=== PATIENT | female | born 1990 | race Caucasian/White ===

== ENCOUNTER 2021-02-16 19:39 | Inpatient (IN) | payer BC ==
[~2021-02-16] VITALS: Ht 157.5 cm; Wt 61.2 kg
[2021-02-16] MEDS ORDERED: ONDANSETRON 4 MG/2 ML VIAL IV ONE (20:00)
[2021-02-16] MEDS ORDERED: HYDROMORPHONE 1 MG/1 ML DISP.SYRIN IV ONE ×3 (20:00→22:30)
[2021-02-16] MEDS ORDERED: PIPERACILLIN SODIUM/TAZOBACTAM 3.375 G in IV DEXTROSE 5% 50 ML IV ONE (20:00)
[2021-02-16] MEDS ORDERED: IV NORMAL SALINE 1000 ML BAG IV ONE (20:00)
[2021-02-16 20:17] LABS: *BILIRUBIN,URIN NEGATIVE (NEGATIVE); *BLOOD, URINE NEGATIVE (NEGATIVE); *CLARITY,URINE CLEAR (CLEAR); *COLOR,URINE YELLOW (YELLOW); *KETONES,URINE NEGATIVE (NEGATIVE); *UROBILINOGEN,URINE 0.2 E.U./dl (NORMAL); LEUKOCYTE ESTERASE ,URINE NEGATIVE (NEGATIVE); NITRITE, URINE NEGATIVE (NEGATIVE); PH,URINE 5.5 (5.0-8.0); UGLUCOSE NEGATIVE (NEGATIVE)
[2021-02-16 20:18] LABS: *URINE HCG, QUAL NEGATIVE (NEGATIVE)
[2021-02-16 20:19] LABS: BASOPHILS # (AUTO) 0.1 K/uL (0.0-8.0); BASOPHILS % (AUTO) 0.6 % (0.0-2.0); EOSINOPHILS # (AUTO) 0.2 K/uL (0.0-0.7); EOSINOPHILS % (AUTO) 1.4 % (0.0-7.0); HEMATOCRIT 40.9 % (31.2-41.9); HEMOGLOBIN 13.9 g/dL (10.9-14.3); LYMPHOCYTES # (AUTO) 2.6 K/uL (20.0-40.0); LYMPHOCYTES % (AUTO) 21.5 % (20.5-51.5); MEAN CORPUSCULAR HEMOGLOBIN 31.2 uug (24.7-32.8); MEAN CORPUSCULAR HGB CONC 34 g/dL (32.3-35.6); MEAN CORPUSCULAR VOLUME 91.7 fL (75.5-95.3); MONOCYTES # (AUTO) 0.7 K/uL (2.0-10.0); MONOCYTES % (AUTO) 6.1 % (0.0-11.0); NEUTROPHILS # (AUTO) 8.6 K/uL (1.8-8.9); NEUTROPHILS % (AUTO) 70.4 % (38.5-71.5); PLATELET COUNT (AUTO) 272 K/uL (179-408); RED BLOOD CELL COUNT(AUTO) 4.46 MIL/uL (3.63-4.92); WHITE BLOOD COUNT (AUTO) 12.3 K/uL (3.8-11.8)
[2021-02-16] MEDS ORDERED: HYDROMORPHONE 1 MG/1 ML DISP.SYRIN ONE ×3 (20:20→22:29)
[2021-02-16] MEDS ORDERED: ONDANSETRON 4 MG/2 ML VIAL ONE (20:20)
[2021-02-16] MEDS ORDERED: PIPERACILLIN/TAZOBACTAM/D5W 50 ML IV ONE (20:21)
[2021-02-16] MEDS ORDERED: SWABABLE VALVE TRANSFER SET EA MC ONE (20:22)
[2021-02-16] MEDS ORDERED: IV NORMAL SALINE 250 ML IV ONE (20:22)
[2021-02-16] MEDS ORDERED: IOHEXOL 300MG/ML 100 ML INFUS..BTL ONE (20:22)
[2021-02-16 20:26] LABS: CREATININE 0.9 mg/dL (0.6-1.3); POTASSIUM 3.5 mmol/L (3.5-5.1)
[2021-02-16 20:32] LABS: BILIRUBIN,DIRECT 0.1 mg/dL (0.0-0.2); BILIRUBIN,TOTAL 0.5 mg/dL (0.2-1.0); TOTAL PROTEIN, SERUM 7.5 g/dL (6.4-8.2)
[2021-02-16] MEDS ORDERED: AMPH20CA3 PO (20:56)
[2021-02-16] MEDS ORDERED: DEXT5TAB15 PO (20:56)
[2021-02-16] MEDS ORDERED: HYDROCODONE/APAP 5-325MG TABLET PO PRN (23:15)
[2021-02-16] MEDS ORDERED: Z GUARD REMEDY PASTE 57 GM TUBE TOP PRN (23:15)
[2021-02-16] MEDS ORDERED: ONDANSETRON 4 MG/2 ML VIAL IV PRN (23:15)
[2021-02-16] MEDS ORDERED: MORPHINE SULFATE 2 MG/1 ML DISP.SYRIN IV PRN (23:15)
[2021-02-16] MEDS ORDERED: MAGNESIUM HYDROXIDE 30 ML LIQUID UDC PO PRN (23:15)
[2021-02-17 00:03] VITALS: BP 107/79
[2021-02-17 04:35] VITALS: BP 93/53
[2021-02-17 06:59] LABS: BASOPHILS # (AUTO) 0.1 K/uL (0.0-8.0); BASOPHILS % (AUTO) 0.9 % (0.0-2.0); EOSINOPHILS # (AUTO) 0.1 K/uL (0.0-0.7); EOSINOPHILS % (AUTO) 1.2 % (0.0-7.0); HEMOGLOBIN 12.4 g/dL (10.9-14.3); LYMPHOCYTES % (AUTO) 22.7 % (20.5-51.5); MEAN CORPUSCULAR HGB CONC 35 g/dL (32.3-35.6); MEAN CORPUSCULAR VOLUME 92.6 fL (75.5-95.3); MONOCYTES # (AUTO) 0.5 K/uL (2.0-10.0); MONOCYTES % (AUTO) 6.1 % (0.0-11.0); NEUTROPHILS # (AUTO) 6.1 K/uL (1.8-8.9); NEUTROPHILS % (AUTO) 69.1 % (38.5-71.5); PLATELET COUNT (AUTO) 221 K/uL (179-408); RED BLOOD CELL COUNT(AUTO) 3.89 MIL/uL (3.63-4.92); WHITE BLOOD COUNT (AUTO) 8.8 K/uL (3.8-11.8)
[2021-02-17 07:43] LABS: CREATININE 0.8 mg/dL (0.6-1.3); MAGNESIUM 1.8 mg/dL (1.8-2.4); PHOSPHOROUS 3.6 mg/dL (2.5-4.9); POTASSIUM 4.9 mmol/L (3.5-5.1)
[2021-02-17] MEDS ORDERED: FENTANYL CITRATE 100 MCG/2 ML AMPUL ONE (08:32)
[2021-02-17] MEDS ORDERED: ROCURONIUM BROMIDE 50 MG/5 ML VIAL ONE (08:33)
[2021-02-17] MEDS ORDERED: BUPIVACAINE PF 0.5% 30 ML VIAL ONE (08:47)
[2021-02-17] MEDS ORDERED: LIDOCAINE 1%-EPI 1:100,000 20 ML VIAL ONE (08:47)
[2021-02-17] MEDS ORDERED: AMPHET PO SCH ×2 (09:00→21:00)
[2021-02-17] MEDS ORDERED: D AMPHET PO SCH ×2 (09:00→21:00)
[2021-02-17] MEDS ORDERED: [UNRECOGNIZED DRUG - OTHER] PO SCH (09:00)
[2021-02-17] MEDS ORDERED: AMPHET ASP PO SCH ×2 (09:00→21:00)
[2021-02-17] MEDS ORDERED: BACITRACIN ZINC OINT 15 GM TUBE ONE (09:05)
[2021-02-17] MEDS ORDERED: SEVOFLURANE 250 ML BOTTLE ONE (09:15)
[2021-02-17] MEDS: ACETAMINOPHEN 325 MG TABLET PO PRN ×2 (11:32→21:09)
[2021-02-17] MEDS: IBUPROFEN 800 MG TABLET PO SCH ×2 (12:10→20:58)
[2021-02-17] MEDS: GABAPENTIN 300 MG CAPSULE PO SCH ×2 (12:10→20:58)
[2021-02-17 14:00] VITALS: BP 104/48
[2021-02-17] MEDS: PIPERACILLIN SODIUM/TAZOBACTAM 3.375 G in IV DEXTROSE 5% 50 ML IV SCH ×2 (15:19→21:12)
[2021-02-17 16:00] VITALS: BP 101/51
[2021-02-17 20:00] VITALS: BP 87/56
[2021-02-17] MEDS ORDERED: [UNRECOGNIZED DRUG - OTHER] PO SCH (21:00)
[2021-02-17] MEDS ORDERED: IV NS 1000 ML 1,000 ML IV PRN (22:45)
[2021-02-18 01:12] VITALS: BP 90/50
[2021-02-18 04:00] VITALS: BP 87/56
[2021-02-18] MEDS: GABAPENTIN 300 MG CAPSULE PO SCH ×2 (04:06→11:03)
[2021-02-18] MEDS: IBUPROFEN 800 MG TABLET PO SCH ×2 (04:06→11:03)
[2021-02-18] MEDS: ACETAMINOPHEN 325 MG TABLET PO PRN (04:06)
[2021-02-18 06:10] VITALS: BP 90/52
[2021-02-18 06:14] LABS: BASOPHILS % (AUTO) 0.3 % (0.0-2.0); EOSINOPHILS % (AUTO) 0.3 % (0.0-7.0); HEMATOCRIT 31.7 % (31.2-41.9); HEMOGLOBIN 10.8 g/dL (10.9-14.3); LYMPHOCYTES # (AUTO) 2.3 K/uL (20.0-40.0); LYMPHOCYTES % (AUTO) 24.5 % (20.5-51.5); MEAN CORPUSCULAR HEMOGLOBIN 31.5 uug (24.7-32.8); MEAN CORPUSCULAR HGB CONC 34 g/dL (32.3-35.6); MEAN CORPUSCULAR VOLUME 92.8 fL (75.5-95.3); MONOCYTES # (AUTO) 0.8 K/uL (2.0-10.0); MONOCYTES % (AUTO) 8.2 % (0.0-11.0); NEUTROPHILS # (AUTO) 6.2 K/uL (1.8-8.9); NEUTROPHILS % (AUTO) 66.7 % (38.5-71.5); PLATELET COUNT (AUTO) 171 K/uL (179-408); RED BLOOD CELL COUNT(AUTO) 3.42 MIL/uL (3.63-4.92); WHITE BLOOD COUNT (AUTO) 9.3 K/uL (3.8-11.8)
[2021-02-18 06:32] LABS: CREATININE 0.7 mg/dL (0.6-1.3); POTASSIUM 3.7 mmol/L (3.5-5.1)
== END 2021-02-18 11:30 | disposition home or self-care (01) | DRG 989 ==
LOC: ER 19:45 → MEDSURG3 23:05
PROVIDERS: ADMIT Family Medicine; ATTEND Family Medicine
PROC: 0WBF0ZZ Excision of Abdominal Wall, Open Approach (ICD-10-PCS; principal; 2021-02-17)
DX: Q64.4 Malformation of urachus (principal); D72.829 Elevated white blood cell count, unspecified; F90.9 Attention-deficit hyperactivity disorder, unspecified type; Z97.5 Presence of (intrauterine) contraceptive device; Z90.2 Acquired absence of lung [part of]; Z91.010 Allergy to peanuts; Z20.822 Contact with and (suspected) exposure to COVID-19
CPT/HCPCS: 36415; 76856; 83690; 83735; 84100; 84703; 85025; 85730; 93005; A4663; G0378; J1170; J2270; J2405; J2543; J3010; J3490; J7030; J7050; J7060; Q9967